=== PATIENT | male | born 1980 | race Caucasian/White ===

== ENCOUNTER 2018-02-20 19:20 | Emergency (ER) | payer OTHER ==
[2018-02-20 19:26] VITALS: BP 130/75; PULSE 88; TEMP 98.3; BMI 37.2
--- NOTE | 2018-02-20 19:31 | PDOC ---
History of Present Illness - History of Present Illness Initial Comments: 02/20/18 20:47 Patient is a 37 M, with no significant PMHx, who presents with left flank pain s /p injury around 4pm. 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 Patient states that the ladder slipped out from under him and he fell forward injuring his left lower back after hitting the ride. Denies hitting head , loss of consciousness. No other associated systems. He denies any numbness, tingling in his extremities or loss of sensation to light touch. He states that he is not on any blood thinners. He states that he took 3 advil for the pain. Social Hx: Cigarette smoker (15-20 years - 2 packs/day) <Lashell Gray - Last Filed: 02/20/18 21:40> <Meghan Schumacher - Last Filed: 02/21/18 01:10> - General Chief Complaint: Injury Stated Complaint: FELL FROM LADDER, PAIN LEFT FLANK Past History <Lashell Gray - Last Filed: 02/20/18 21:40> - Past Medical History COPD: No Other medical history: DENIES - Suicide/Smoking/Psychosocial Hx Smoking History: Never smoked Have you smoked in the past 12 months: Yes Number of Cigarettes Smoked Daily: 20 Information on smoking cessation initiated: Yes 'Breaking Loose' booklet given: 02/20/18 Hx Alcohol Use: No Drug/Substance Use Hx: No Substance Use Type: None <Meghan Schumacher - Last Filed: 02/21/18 01:10> - Past Medical History Allergies/Adverse Reactions: Allergies Allergy/AdvReac Type Severity Reaction Status Date / Time No Known Allergies Allergy Verified 02/20/18 19:22 Home Medications: Ambulatory Orders NK [No Known Home Medication] 02/20/18 Review of Systems - Review of Systems Comments:: 02/20/18 20:58 CONSTITUTIONAL: Absent: fever, chills, diaphoresis, generalized weakness, malaise, loss of appetite HEENT: Absent: rhinorrhea, nasal congestion, throat pain, throat swelling, difficulty swallowing, mouth swelling, ear pain, eye pain, visual Changes CARDIOVASCULAR: Absent: chest pain, syncope, palpitations, irregular heart rate, lightheadedness , peripheral edema RESPIRATORY: Absent: cough, shortness of breath, dyspnea with exertion, orthopnea, wheezing, stridor, hemoptysis GASTROINTESTINAL: Absent: abdominal pain, abdominal distension, nausea, vomiting, diarrhea, constipation, melena, hematochezia GENITOURINARY: Absent: dysuria, frequency, urgency, hesitancy, hematuria, genital pain MUSCULOSKELETAL: Present: lower back pain Absent:arthralgia, joint swelling SKIN: Present: Periorbital laceration Absent: rash, itching, pallor HEMATOLOGIC/IMMUNOLOGIC: Absent: easy bleeding, easy bruising, lymphadenopathy, frequent infections ENDOCRINE: Absent: unexplained weight gain, unexplained weight loss, heat intolerance, cold intolerance NEUROLOGIC: Absent: headache, focal weakness or paresthesias, dizziness, unsteady gait, seizure, mental status changes, bladder or bowel incontinence PSYCHIATRIC: Absent: anxiety, depression, suicidal or homicidal ideation, hallucinations. <Lashell Gray - Last Filed: 02/20/18 21:40> *Physical Exam - Vital Signs Last Vital Signs Temp Pulse Resp BP Pulse Ox 98.3 F 88 18 130/75 98 02/20/18 19:22 02/20/18 19:22 02/20/18 19:22 02/20/18 19:22 02/20/18 19:22 <MarinaLashell - Last Filed: 02/20/18 21:40> - Vital Signs Last Vital Signs Temp Pulse Resp BP Pulse Ox 98.3 F 88 18 130/75 98 02/20/18 19:22 02/20/18 19:22 02/20/18 19:22 02/20/18 19:22 02/20/18 19:22 - Physical Exam General Appearance: Yes: Nourished, Appropriately Dressed, Apparent Distress HEENT: positive: EOMI, Normal ENT Inspection, Symmetrical, TMs Normal, Pharynx Normal, Other (+periorbital swelling to R eye, EOMI, PERRL, +abrasion and tiny laceration lateral to L eye) Neck: positive: Trachea midline, Supple. negative: Tender, Decreased range of motion, Tender lateral, Tender midline Respiratory/Chest: positive: Lungs Clear, Normal Breath Sounds. negative: Chest Tender, Accessory Muscle Use, Labored Respiration Cardiovascular: positive: Regular Rhythm, Regular Rate Gastrointestinal/Abdominal: positive: Normal Bowel Sounds, Soft. negative: Decreased BS, Guarding, Rebound, Tenderness, Mass Musculoskeletal: positive: Other (no midline C/T/L tnd to palpation) Extremity: positive: Normal Inspection, Normal Range of Motion, Pelvis Stable. 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 NML intact, Fully Oriented, Alert, Normal Mood/ Affect <Meghan Schumacher - Last Filed: 02/21/18 01:10> ED Treatment Course - LABORATORY CBC & Chemistry Diagram: 02/20/18 21:05 02/20/18 21:05 - ADDITIONAL ORDERS Additional order review: Laboratory Results 02/20/18 19:30 Urine Color Yellow Urine Appearance Clear Urine pH 6.0 Ur Specific [place] >= 1.030 H Urine Protein Trace Urine Glucose (UA) Negative Urine Ketones Trace Urine Blood Negative Urine Nitrite Negative Urine Bilirubin 1+ H Urine Urobilinogen 1.0 Ur Leukocyte Esterase Negative <Lashell Gray - Last Filed: 02/20/18 21:40> - LABORATORY CBC & Chemistry Diagram: 02/20/18 21:05 02/20/18 21:05 <Meghan Schumacher - Last Filed: 02/21/18 01:10> Medical Decision Making - Medical Decision Making 02/20/18 21:24 Pt seen/examined with medical student. +fall from ladder, approx 6 feet, at approx 4pm. Not on a/c. No LOC, head strike but did break his glasses with the fall and sustain small laceration/abrasion lateral to R eye. No evidence of occular injury. Pt with hematoma and tnd over L flank. Phased array US probe is unfortunately not functional, thus FAST exam is not able to be completed. Pt is hemodynamically stable for CT scan to r/o intra/retroperitoneal hemorrhage. 02/21/18 00:51 CT abd/pelvis with soft tissue injury, no evidence of acute traumatic visceral injury or hematoma in abd/pelvis. Pt's pain has improved, will recommend ice/ heat therapy, tylenol/motrin for pain and to return if worsening pain, vomiting , fever or other concerning symptoms. Will repair very small R facial laceration with 1-2 6.0 sutures - to return in 5d for suture removal. Will dianetic counselor about signs of infection which should prompt sooner return to the ER. 02/21/18 01:05 Discussed results with patient. He is refusing the sutures. I explained risk of poor cosmesis, increased risk of infection, pt understands and prefers not to have sutures. Has capacity to refuse. Pt has appt with Dr. Fernandez tomorrow (ortho), will bring copy of CT and will be able to obtain re-examination at that time. Discussed reasons to return, pt understands. Questions answered. Also counseled on smoking cessation/reduction. Dc home. <Meghan Schumacher - Last Filed: 02/21/18 01:10> *DC/Admit/Observation/Transfer <Lashell Gray - Last Filed: 02/20/18 21:40> <Meghan Schumacher - Last Filed: 02/21/18 01:10> Diagnosis at time of Disposition: Flank pain, Fall - Discharge Dispostion Disposition: HOME Condition at time of disposition: Stable - Patient Instructions Printed Discharge Instructions: How to Prevent Falls Additional Instructions: You were seen in the ER four hours after a fall from 6 [address] You had a CT scan to look for deep injuries/bleeding, this was negative. You do have some soft tissue swelling to your abdominal wall and bruising. Please apply ice to the area followed by heat to help relieve your pain. Return to an ER if your symptoms worsen, if you have vomiting, fever or your pain migrates more to your abdomen. Follow up with your doctors as planned.
[2018-02-20 19:46] LABS: URINE APPEARANCE Clear; URINE BILIRUBIN 1+ (NEGATIVE); URINE GLUCOSE (UA) Negative (NEGATIVE); URINE KETONE Trace (NEGATIVE); URINE LEUK ESTERASE Negative (NEGATIVE); URINE NITRITE Negative (NEGATIVE); URINE PROTEIN Trace (NEGATIVE)
[2018-02-20 19:56] LABS: URINE COLOR YELLOW
[2018-02-20 21:23] LABS: BASO % 1.9 % (0-2.0); EOS % 2.7 % (0-4.5); HEMOGLOBIN 13.8 GM/dl (11.7-16.9); LYMPH % 22.9 % (8-40); MCH 29.3 pg (25.7-33.7); MCHC 33.8 g/dl (32.0-35.9); MEAN CELL VOLUME 86.8 fl (80-96); MONO % 9.4 % (3.8-10.2); NEUT % 63.1 % (42.8-82.8); PLATELET COUNT 369 K/MM3 (134-434); RBC 4.72 M/mm3 (4.00-5.60); RDW 12.8 % (11.9-15.9); WHITE BLOOD COUNT 8.8 K/mm3 (4.0-10.8)
[2018-02-20 21:37] LABS: ALBUMIN 4.3 g/dl (3.5-5.0); ALK PHOS 93 U/L (32-92); ANION GAP 6 (8-16); BLOOD UREA NITROGEN 16 mg/dl (7-18); CALCIUM 8.8 mg/dl (8.4-10.2); CHLORIDE 103 mmol/L (98-107); CO2 25 mmol/L (22-28); CREATININE 0.9 mg/dl (0.6-1.3); GLUCOSE,RANDOM 111 mg/dl (74-106); POTASSIUM 3.8 mmol/L (3.5-5.1); SGOT/AST 24 U/L (10-42); SGPT/ALT 36 U/L (10-40); SODIUM 134 mmol/L (136-145); TOT PROT 6.8 g/dl (6.4-8.3)
[2018-02-20 21:57] LABS: BILIRUBIN,TOTAL < 0.5 mg/dl (0.2-1.0)
== END 2018-02-21 01:17 | disposition home or self-care (01) ==
LOC: FER 19:20
DX: R10.32 Left lower quadrant pain (principal); W11.XXXA Fall on and from ladder, initial encounter; Y93.89 Activity, other specified; Y92.9 Unspecified place or not applicable; Y99.0 Civilian activity done for income or pay
CPT/HCPCS: 36415; 71046-TC-FY; 72170-TC-FY; 74177-TC; 80053; 81003; 85025; 99281-25